=== PATIENT | male | born 2000 | race African-American/Black ===

== ENCOUNTER 2019-03-12 11:59 | Emergency (ER) | payer SELFPAY ==
[2019-03-12] MEDS ORDERED: LIDOCAINE 1% INJ (10 MG/ML) 10 ML MDV INJ ONE (12:47)
--- NOTE | 2019-03-12 12:48 | ER Document Report ---
ED Medical Screen (RME) - General Chief Complaint: Abscess Stated Complaint: POSSIBLE ABSCESS Time Seen by Provider: 03/12/19 12:45 Primary Care Provider: DIANNA OCHOA MD [Primary Care Provider] - Follow up as needed Mode of Arrival: Ambulatory Information source: Patient TRAVEL OUTSIDE OF THE [place] IN LAST 30 DAYS: No - HPI Patient complains to provider of: possible abscess Notes: 03/12/19 12:48 Pain in the right buttocks for the last week. No fever. No drainage. Exam No distress, nontoxic appearing. Indurated tender abscess to the right buttock. No significant cellulitis. No drainage. Plan Patient will go back to see another provider to determine if I&D is required at this time. An initial examination was made on the patient as part of the triage process, and it was determined a more comprehensive evaluation was necessary. Initial labs were ordered and patient was transferred to another provider in the ED who assumed care and finished evaluation and plan. - Related Data Allergies/Adverse Reactions: No Known Allergies Allergy (Verified 03/12/19 12:00) Past Medical History - Social History Chew tobacco use (# tins/day): No Frequency of alcohol use: None Drug Abuse: None - Past Medical History Cardiac Medical History: Denies: Hx Coronary Artery Disease, Hx Heart Attack, Hx Hypertension Pulmonary Medical History: Denies: Hx Asthma, Hx Bronchitis, Hx COPD, Hx Pneumonia Neurological Medical History: Denies: Hx Cerebrovascular Accident Renal/ Medical History: Denies: Hx Peritoneal Dialysis Musculoskeltal Medical History: Denies Hx Arthritis Past Surgical History: Reports: Hx Orthopedic Surgery - R knee surgery 2013 - Immunizations Immunizations up to date: Yes Hx Diphtheria, Pertussis, Tetanus Vaccination: Yes Physical Exam - Vital signs Vitals: Temp Pulse Resp BP Pulse Ox 98.1 F 87 16 116/54 L 99 03/12/19 12:09 03/12/19 12:09 03/12/19 12:09 03/12/19 12:09 03/12/19 12:09 Course - Vital Signs Vital signs: Temp Pulse Resp BP Pulse Ox 98.1 F 87 16 116/54 L 99 03/12/19 12:09 03/12/19 12:09 03/12/19 12:09 03/12/19 12:09 03/12/19 12:09 Doctor's Discharge - Discharge Referrals: DIANNA OCHOA MD [Primary Care Provider] - Follow up as needed
[2019-03-12] MEDS ORDERED: OXYCODONE-ACETAMINOPHEN 5-325 MG TABLET PO ONE (13:28)
[2019-03-12] MEDS ORDERED: SULFAMETHOXAZOLE/TRIMETHOPRIM 800-160 MG TABLET PO ONE (13:28)
--- NOTE | 2019-03-12 14:04 | ER Document Report ---
HPI - HPI Patient complains to provider of: Abscess Time Seen by Provider: 03/12/19 12:45 Onset: Last week Onset/Duration: Persistent Quality of pain: Achy Pain Level: 2 Context: Patient complains of abscess to right buttock for the past week. Patient denies any fever or drainage from the area. Patient denies any history of MRSA. Associated Symptoms: denies: Fever Exacerbated by: Movement, Walking Relieved by: Denies Similar symptoms previously: No Recently seen / treated by doctor: No - ROS ROS below otherwise negative: Yes Systems Reviewed and Negative: Yes All other systems reviewed and negative - CONSTITUTIONAL Constitutional: DENIES: Fever, Chills - MUSCULOSKELETAL Musculoskeletal: REPORTS: Extremity pain - DERM Skin Color: Normal Notes: Abscess to right buttock Past Medical History - General Information source: Patient - Social History Smoking Status: Never Smoker Chew tobacco use (# tins/day): No Frequency of alcohol use: None Drug Abuse: None Occupation: Job [employer] Family History: None Patient has suicidal ideation: No Patient has homicidal ideation: No - Medical History Medical History: Negative Neurological Medical History: Denies: Hx Cerebrovascular Accident Musculoskeletal Medical History: Denies Hx Arthritis Past Surgical History: Reports: Hx Orthopedic Surgery - R knee surgery 2014 - Immunizations Immunizations up to date: Yes Hx Diphtheria, Pertussis, Tetanus Vaccination: Yes Vertical Provider Document - CONSTITUTIONAL Agree With Documented VS: Yes Exam Limitations: No Limitations General Appearance: WD/WN, No Apparent Distress - INFECTION CONTROL TRAVEL OUTSIDE OF THE [place] IN LAST 30 DAYS: No - HEENT HEENT: Atraumatic, Normocephalic - NECK Neck: Normal Inspection, Supple - RESPIRATORY Respiratory: Breath Sounds Normal, No Respiratory Distress - CARDIOVASCULAR Cardiovascular: Regular Rate, Regular Rhythm - BACK Back: Normal Inspection - MUSCULOSKELETAL/EXTREMETIES Musculoskeletal/Extremeties: JUAN SORIA - NEURO Level of Consciousness: Awake, Alert, Appropriate Motor/Sensory: No Motor Deficit - DERM Integumentary: Warm, Dry, Abscess - Tender indurated area to right buttock concerning for abscess, area of induration measures 3 cm x 3 cm Course - Vital Signs Vital signs: Temp Pulse Resp BP Pulse Ox 98.1 F 87 16 116/54 L 99 03/12/19 12:09 03/12/19 12:09 03/12/19 12:09 03/12/19 12:09 03/12/19 12:09 Procedures - Incision and Drainage Right Buttock Type: Simple Anesthetic type: 1% Lidocaine Blade size: 11 I&D procedure: Betadine prep applied Incision Method: Incision made by scalpel Amount/type of drainage: Small amount of purulent drainage Adult Front & Back picture: 1 - Abscess Discharge - Discharge Clinical Impression: Abscess, Encounter for incision and drainage procedure Condition: Stable Disposition: HOME, SELF-CARE Instructions: Abscess ([facility]), Oral Narcotic Medication ([facility]), Post Incision and Drainage, Trimethoprim-Sulfa ([facility]) Additional Instructions: Return immediately for any new or worsening symptoms Followup with your primary care provider, call tomorrow to make a followup appointment Apply warm compresses to area frequently Keep area covered as it continues to drain. Prescriptions: Oxycodone HCl/Acetaminophen [Percocet 5-325 mg Tablet] 1 tab PO ASDIR PRN #8 tablet PRN Reason: Sulfamethoxazole/Trimethoprim [Bactrim Ds Tablet] 1 each PO BID #20 tablet Referrals: DIANNA OCHOA MD [Primary Care Provider] - Follow up as needed
[2019-03-12 14:28] VITALS: BP 112/61
== END 2019-03-12 14:28 | disposition home or self-care (01) ==
LOC: ER 11:59
DX: L02.31 Cutaneous abscess of buttock (principal)
CPT/HCPCS: 99283

== ENCOUNTER 2019-03-24 13:26 | Emergency (ER) | payer SELFPAY ==
[2019-03-24] MEDS ORDERED: HYDROCODONE/ACETAMINOPHEN 5-325 MG TABLET PO ONE ×2 (13:56→16:45)
--- NOTE | 2019-03-24 13:59 | ER Document Report ---
ED Medical Screen (RME) - General Chief Complaint: Abscess Stated Complaint: ABSCESS/BUTTOCKS Time Seen by Provider: 03/24/19 13:53 Primary Care Provider: DIANNA OCHOA MD [Primary Care Provider] - Follow up as needed Mode of Arrival: Ambulatory Information source: Patient TRAVEL OUTSIDE OF THE [place] IN LAST 30 DAYS: No - HPI Patient complains to provider of: ABSCESS Notes: 03/24/19 13:57 Patient here with complaints of abscess to the left buttocks. Has had these in the past. Few weeks ago he had to have one drained and then he was here about 4 days ago and there was one that did not need to be drained at that time. He is not currently on antibiotics. He now has an increasing left buttock abscess that is more painful. No fevers. Exam No distress, nontoxic-appearing. Lungs clear and equal throughout. Heart sounds normal. Indurated abscess to the left buttocks with no significant surrounding cellulitis. Tenderness to palpation. Plan Patient will be given a dose of [place] for pain, he has a hook up driver with him. He will potentially need I&D. An initial examination was made on the patient as part of the triage process, and it was determined a more comprehensive evaluation was necessary. Initial labs were ordered and patient was transferred to another provider in the ED who assumed care and finished evaluation and plan. - Related Data Allergies/Adverse Reactions: No Known Allergies Allergy (Verified 03/24/19 13:28) Past Medical History - Past Medical History Cardiac Medical History: Denies: Hx Coronary Artery Disease, Hx Heart Attack, Hx Hypertension Pulmonary Medical History: Denies: Hx Asthma, Hx Bronchitis, Hx COPD, Hx Pneumonia Neurological Medical History: Denies: Hx Cerebrovascular Accident Renal/ Medical History: Denies: Hx Peritoneal Dialysis Musculoskeltal Medical History: Denies Hx Arthritis Past Surgical History: Reports: Hx Orthopedic Surgery - R knee surgery 2014 - Immunizations Immunizations up to date: Yes Hx Diphtheria, Pertussis, Tetanus Vaccination: Yes Physical Exam - Vital signs Vitals: Temp Pulse Resp BP Pulse Ox 98.1 F 91 16 114/59 L 97 03/24/19 13:39 03/24/19 13:39 03/24/19 13:39 03/24/19 13:39 03/24/19 13:39 Course - Vital Signs Vital signs: Temp Pulse Resp BP Pulse Ox 98.1 F 91 16 114/59 L 97 03/24/19 13:39 03/24/19 13:39 03/24/19 13:39 03/24/19 13:39 03/24/19 13:39 Doctor's Discharge - Discharge Referrals: DIANNA OCHOA MD [Primary Care Provider] - Follow up as needed
[2019-03-24] MEDS ORDERED: LIDOCAINE 1%/EPINEPHRINE INJ 20 ML VIAL INJ ONE (15:22)
--- NOTE | 2019-03-24 15:27 | ER Document Report ---
ED General - General Chief Complaint: Abscess Stated Complaint: ABSCESS/BUTTOCKS Time Seen by Provider: 03/24/19 13:53 Primary Care Provider: DIANNA OCHOA MD [Primary Care Provider] - Follow up as needed Mode of Arrival: Ambulatory Information source: Patient TRAVEL OUTSIDE OF THE [place] IN LAST 30 DAYS: No - HPI Patient complains to provider of: Abscess left buttock Onset: Last week Onset/Duration: Persistent Quality of pain: Sharp Severity: Severe Pain Level: 5 Associated symptoms: denies: Chills, Fever Exacerbated by: Denies Relieved by: Denies Similar symptoms previously: No Recently seen / treated by doctor: No Notes: 19-year-old -[place] male coming in today with abscess to the left buttock. No fevers or chills. History of abscess to the same buttock in the recent past. - Related Data Allergies/Adverse Reactions: No Known Allergies Allergy (Verified 03/24/19 13:28) Past Medical History - General Information source: Patient - Social History Smoking Status: Never Smoker Chew tobacco use (# tins/day): No Frequency of alcohol use: None Drug Abuse: None Family History: None, Reviewed & Not Pertinent Patient has suicidal ideation: No Patient has homicidal ideation: No - Past Medical History Cardiac Medical History: Denies: Hx Coronary Artery Disease, Hx Heart Attack, Hx Hypertension Pulmonary Medical History: Denies: Hx Asthma, Hx Bronchitis, Hx COPD, Hx Pneumonia Neurological Medical History: Denies: Hx Cerebrovascular Accident Renal/ Medical History: Denies: Hx Peritoneal Dialysis Musculoskeletal Medical History: Denies Hx Arthritis Past Surgical History: Reports: Hx Orthopedic Surgery - R knee surgery 2014 - Immunizations Immunizations up to date: Yes Hx Diphtheria, Pertussis, Tetanus Vaccination: Yes Review of Systems - Review of Systems Notes: Constitutional: No fevers. No chills. EENT: No eye redness. No eye pain. No ear pain. No sore throat. Cardiovascular: No chest pain. No palpitations. Respiratory: No cough. No shortness of breath. No respiratory distress. Gastrointestinal: No abdominal pain. No nausea, vomiting, or diarrhea. Genitourinary: Atraumatic. No lesions. No pain. No discharge. Musculoskeletal: Atraumatic. No swelling. No deformities. Skin: Positive for abscess left buttock Lymphatic: No swollen lymph nodes. Neurologic: No headache. No syncope. Psychiatric: No suicidal or homicidal ideation. Physical Exam - Vital signs Vitals: Temp Pulse Resp BP Pulse Ox 98.1 F 91 16 114/59 L 97 03/24/19 13:39 03/24/19 13:39 03/24/19 13:39 03/24/19 13:39 03/24/19 13:39 - Notes Notes: General: Well-developed, well-nourished. In no acute distress. Non-toxic appearing. Cardiac: Well-perfused. Regular rate and rhythm. No murmurs, rubs, or gallops. Pulmonary: No respiratory distress. No cyanosis. Bilateral lung fiels are clear to auscultation. Abdominal: Non-distended. Non-rigid. Bowels sounds are present in all four quadrants. No guarding or rebound. HEENT: Head is atraumatic. Conjunctivae not reddened. No tearing. PERRL. EOMI. Orbits atraumatic. No periorbital swelling or erythema. Oropharynx is without erythema, swelling, or exudates. Neck: Supple. No adenopathy. No meningismus. Dermatologic: Semi-fluctuant tender abscess left mid buttock. Chest: Atraumatic. No chest wall tenderness to palpation. Musculoskeletal: Moves all extremities well. No range of motion deficits. no muscular or joint tenderness. No paraspinal muscle tenderness. no midline spinal tenderness or step-off. Genitourinary: Examination deferred Neurologic: No gross neurologic deficits. Psychiatric: Normal mood. Course - Vital Signs Vital signs: Temp Pulse Resp BP Pulse Ox 98.1 F 91 16 114/59 L 97 03/24/19 13:39 03/24/19 13:39 03/24/19 13:39 03/24/19 13:39 03/24/19 13:39 Procedures - Incision and Drainage left buttocks Time completed: 16:13 Type: Simple Anesthetic type: 1% Lidocaine mL's of anesthetic: 8 Blade size: 11 I&D procedure: [place] applied Incision Method: Incision made by scalpel Amount/type of drainage: moderate 10 ml pus and blood Discharge - Discharge Clinical Impression: Left buttock abscess Condition: Good Disposition: HOME, SELF-CARE Instructions: Abscess ([facility]), Trimethoprim-Sulfa ([facility]), Post Incision and Drainage Additional Instructions: Return here in 2 days for recheck of wound. Prescriptions: Sulfamethoxazole/Trimethoprim [Bactrim Ds Tablet] 1 each PO BID #20 tablet Referrals: DIANNA OCHOA MD [Primary Care Provider] - 03/26/19
[2019-03-24] MEDS ORDERED: IBUPROFEN 800 MG TABLET PO ONE (16:45)
[2019-03-24] MEDS ORDERED: HYDROCODONE/ACETAMINOPHEN 5-325 MG (6 TAB/ER DISP) PO PRN (16:45)
[2019-03-24 17:01] VITALS: BP 100/52
== END 2019-03-24 17:00 | disposition home or self-care (01) ==
LOC: ER 13:26
DX: L02.91 Cutaneous abscess, unspecified (principal)
CPT/HCPCS: 99283; J3490